=== PATIENT | female | born 1970 | race Caucasian/White ===

== ENCOUNTER 2017-10-25 04:36 | Observation (INO) | payer OTHER ==
--- NOTE | 2017-10-25 05:06 | PDOC ---
History of Present Illness <Katerine Mansfield - Last Filed: 10/25/17 09:28> - General History Source: Patient Exam Limitations: No Limitations - History of Present Illness Initial Comments: 10/25/17 05:28 47F with PMH of asthma presents to the ER with shortness of breath. She states since last night she has been having shortness of breath and started wheezing. She states she also had an oral temperature of 101 last night. The patient states she had a UTI on 10/16/2017 and was prescribed macrobid but she wasn't too compliant as she would forget to take her medications. She states the dysuria and increased urinary frequency has resolved. She denies cough or sputum production. She is an active cigarette smoker. She has not had an asthma exacerbation in many years and only uses her inhaler on infrequent occasions such as when she gets sick or exercises. She states she just saw her PMD and had a physical and everything was ok. She denies vomiting chest pain or GI symptoms. She endorses shortness of breath nausea fever and chills. <Sathya Negro - Last Filed: 10/26/17 03:50> - General Chief Complaint: Shortness of Breath Stated Complaint: ASTHMA Past History <Katerine Mansfield - Last Filed: 10/25/17 09:28> - Past Medical History Anemia: No Asthma: Yes Cancer: No Cardiac Disorders: No CVA: No COPD: No CHF: No Dementia: No Diabetes: No GI Disorders: No Disorders: No HTN: No Hypercholesterolemia: No Liver Disease: No Seizures: No Thyroid Disease: No - Surgical History Abdominal Surgery: No Appendectomy: No Cardiac Surgery: No Cholecystectomy: No Lung Surgery: No Neurologic Surgery: No Orthopedic Surgery: No - Suicide/Smoking/Psychosocial Hx Smoking Status: Yes Smoking History: Current every day smoker Have you smoked in the past 12 months: Yes Number of Cigarettes Smoked Daily: 20 'Breaking Loose' booklet given: 10/04/12 Hx Alcohol Use: No Drug/Substance Use Hx: No Substance Use Type: None Hx Substance Use Treatment: No <Sathya Negro - Last Filed: 10/26/17 03:50> - Past Medical History Allergies/Adverse Reactions: Allergies Allergy/AdvReac Type Severity Reaction Status Date / Time Penicillins Allergy Rash Verified 10/25/17 05:05 Home Medications: Ambulatory Orders Montelukast Na [Singulair -] 10 mg PO HS 10/01/12 Albuterol 0.083% Nebulizer Cherri [Ventolin 0.083%] 1 neb NEB Q4H PRN 10/25/17 Cholecalciferol (Vitamin D3) [Vitamin D3] 1,000 unit PO BID 10/25/17 Fluticasone/Salmeterol [Advair 250-50 Diskus] 1 puff IH DAILY 10/25/17 Review of Systems - Review of Systems Able to Perform ROS?: Yes Is the patient limited French proficient: No Constitutional: Yes: Chills, Fever HEENTM: No: Symptoms Reported, See HPI, Eye Pain, Blurred Vision, Tearing, Recent change in vision, Double Vision, Cataracts, Ear Pain, Ocular Prothesis, Ear Discharge, Nose Pain, Nose Congestion, Tinnitus, Nose Bleeding, Hearing Loss , Throat Pain, Throat Swelling, Mouth Pain, Dental Problems, Difficulty Swallowing, Mouth Swelling, Other Respiratory: Yes: Shortness of Breath, Wheezing Cardiac (ROS): No: Symptoms Reported, See HPI, Chest Pain, Edema, Irregular Heart Rate, Lightheadedness, Palpitations, Syncope, Chest Tightness, Other ABD/GI: Yes: Nausea : Yes: Dysuria (resolved), Frequency (resolved ) Musculoskeletal: Yes: Back Pain Integumentary: No: Symptoms Reported, See HPI, Bruising, Change in Color, Change in Hair/Nails, Dryness, Erythema, Flushing, Lesions, Lumps, Pallor, Pruritus, Rash, Sweating, Other Neurological: No: Symptoms reported, See HPI, Headache, Numbness, Paresthesia, Pre-Existing Deficit, Seizure, Tingling, Tremors, Weakness, Unsteady Gait, Ataxia, Dizziness, Other Psychiatric: No: Anxiety, Depression, Frequent Crying, Stressors, Sleep Pattern Change, Emotional Problems, Mood Swings, Change in Appetite, Other Endocrine: No: Symptoms Reported, See HPI, Excessive Sweating, Flushing, Intolerance to Cold, Intolerance to Heat, Increased Hunger, Increased Thirst, Increased Urine, Unexplained Weight Gain, Unexplained Weight Loss, Change in Weight, Other <Sathya Negro - Last Filed: 10/26/17 03:50> *Physical Exam - Vital Signs Last Vital Signs Temp Pulse Resp BP Pulse Ox 99.8 F H 110 H 20 136/86 90 L 10/25/17 04:37 10/25/17 04:37 10/25/17 04:37 10/25/17 04:37 10/25/17 04:37 <Katerine Mansfield - Last Filed: 10/25/17 09:28> - Physical Exam General Appearance: Yes: Nourished, Appropriately Dressed. No: Apparent Distress HEENT: positive: EOMI, BONI Neck: positive: Trachea midline, Supple Respiratory/Chest: positive: Wheezing, Other (prolonged expiratory phase. speaks in full sentences ) Cardiovascular: positive: Regular Rhythm, Tachycardia Gastrointestinal/Abdominal: positive: Soft. negative: Tender Musculoskeletal: negative: CVA Tenderness Extremity: positive: Normal Capillary Refill Integumentary: positive: Dry, Warm Neurologic: positive: cloth dyer II-XII NML intact, Fully Oriented, Alert, Normal Mood/ Affect, Normal Response, Motor Strength 5/5 <Sathya Negro - Last Filed: 10/26/17 03:50> ED Treatment Course - LABORATORY CBC & Chemistry Diagram: 10/25/17 05:25 10/25/17 05:25 - ADDITIONAL ORDERS Additional order review: Laboratory Results 10/25/17 10/25/17 10/25/17 05:25 05:25 05:25 Sodium 141 Potassium 4.3 Chloride 109 H Carbon Dioxide 23 Anion Gap 9 BUN 15 Creatinine 0.8 Creat Clearance w eGFR > 60 Random Glucose 111 H Calcium 8.9 Magnesium 1.8 Total Bilirubin 0.6 AST 16 ALT 29 Alkaline Phosphatase 97 Creatine Kinase 88 Troponin I < 0.02 Total Protein 7.6 Albumin 3.8 10/25/17 05:25 RBC 4.84 MCV 90.9 MCHC 33.1 RDW 13.8 MPV 8.8 Neutrophils % 93.8 H Lymphocytes % 4.4 L Monocytes % 0.2 L Eosinophils % 1.6 Basophils % 0.0 - Medications Given in the ED: ED Medications Discontinued Medications Generic Name Dose Route Start Last Admin Trade Name Brantq PRN Reason Stop Dose Admin Acetaminophen 1,000 mg 10/25/17 06:37 10/25/17 06:58 Ofirmev Injection - IVPB 10/25/17 06:38 1,000 mg ONCE ONE Administration Albuterol/Ipratropium 3 amp 10/25/17 05:22 08/19/18 05:45 Duoneb - NEB 10/25/17 05:23 3 amp ONCE ONE Administration Levofloxacin 750 mg in 150 mls @ 100 mls/hr 10/25/17 06:37 10/25/17 06:58 Levaquin 750 Mg Premixed Ivpb - IVPB 10/25/17 08:06 100 mls/hr ONCE ONE Administration Protocol Magnesium Sulfate 2 gm 10/25/17 05:25 10/25/17 05:45 Magnesium Sulfate IVPB 10/25/17 05:26 2 gm ONCE ONE Administration Prednisone 60 mg 10/25/17 05:23 10/25/17 05:45 Deltasone - PO 10/25/17 05:24 60 mg ONCE ONE Administration <Katerine Mansfield - Last Filed: 10/25/17 09:28> - LABORATORY CBC & Chemistry Diagram: 10/25/17 05:25 10/25/17 05:25 <Sathya Negro - Last Filed: 10/26/17 03:50> Medical Decision Making - Medical Decision Making 10/25/17 06:03 47F with asthma exacerbation and possible UTI vs PNA. Hypoxic to 90% Peak flow 190 Will do: CBC CMP Cardiac profile UA UCx Upreg Mg Duonebs Prednisone 60mg po magnesium 2GM CXR reassess possible admission 10/25/17 06:35 labs noted WBC count 20 Will give levaquin 750mg IV Will give IV Tylenol CXR consistent with bronchitis on my read recommended admission and she does not want to be admitted. Discussed risks of signing out AMA with an O2 saturation of 90% and WBC count of 20 including sepsis septic shock and . She will think about it Patient signed out to Dr. Levy <Sathya Negro - Last Filed: 10/26/17 03:50> *DC/Admit/Observation/Transfer - Discharge Dispostion Decision to Admit order: Yes <Katerine Mansfield - Last Filed: 10/25/17 09:28> <Sathya Negro - Last Filed: 10/26/17 03:50> Diagnosis at time of Disposition: Pneumonia - Discharge Dispostion Condition at time of disposition: Stable
[2017-10-25] MEDS ORDERED: ALBUTEROL SO4 2.5/IPRATROPIUM 0.5 INH SOL 3 ML VIAL.NEB. NEB ONE ×4 (05:21→18:04)
[2017-10-25] MEDS ORDERED: ALBUTEROL SO4 0.083% IH SOL 2.5 MG/3 ML VIAL.NEB. NEB ONE (05:21)
[2017-10-25] MEDS ORDERED: predniSONE 20 MG TABLET (UD) PO ONE (05:23)
[2017-10-25] MEDS ORDERED: MAGNESIUM SULF 50% (8.12 MEQ/2 ML-1 GM VIAL) IVPB ONE (05:25)
--- NOTE | 2017-10-25 05:33 | PDOC ---
Attending Attestation - HPI HPI: 10/25/17 06:27 Patient is a 47 year old female with a significant past medical history of hyperlipidemia and asthma who presents to the ED with complaints of difficulty breathing that began just prior to ED arrival. Patient reports experiencing difficulting breathing with associated chills, chest tightness, stating it feels as if someone is sitting on my chest. She reports being prescribed Macrobid for UTI x6 days ago but states she was not compliant with the medication , stating she currently has one or two pills left in the bottle. Denies chest pain, coughing. Denies fevers, chills. Denies nausea, vomiting. Denies contact with sick individuals, out of state traveling. Denies dysuria, hematuria. Denies diarrhea, constipation. Denies any other symptoms. Allergies: Penicillin Social history: Lives with . Current smoker. No alcohol. No illicit drugs. Surgical history: None PMD: Dr. Sveta Reyna-jessica - Physicial Exam PE: 10/25/17 06:27 GENERAL: Awake, alert, and fully oriented, in no acute distress HEAD: No signs of trauma EYES: PERRLA, EOMI, sclera anicteric, conjunctiva clear ENT: Auricles normal inspection, hearing grossly normal, nares patent, oropharynx clear without exudates. Moist mucosa NECK: Normal ROM, supple, no lymphadenopathy, JVD, or masses LUNGS: +Very tight breath sounds. +Expiratory wheeze. No crackles HEART: Regular rate and rhythm, normal S1 and S2, no murmurs, rubs or gallops ABDOMEN: Soft, nontender, normoactive bowel sounds. No guarding, no rebound. No masses EXTREMITIES: Normal range of motion, no edema. No clubbing or cyanosis. No cords, erythema, or tenderness NEUROLOGICAL: Cranial nerves II through XII grossly intact. Normal speech, normal gait SKIN: Warm, Dry, normal turgor, no rashes or lesions noted. <Danny Grijalva - Last Filed: 10/25/17 06:27> - Resident Resident Name: Flaquito Rocha - ED Attending Attestation I have performed the following: I have examined & evaluated the patient, The case was reviewed & discussed with the resident, I agree w/resident's findings & plan, Exceptions are as noted - Medical Decision Making 10/25/17 05:33 A portion of this note was written by my scribe, under my supervision. Vital Signs Temp Pulse Resp BP Pulse Ox 99.8 F H 110 H 20 136/86 90 L 10/25/17 04:37 10/25/17 04:37 10/25/17 04:37 10/25/17 04:37 10/25/17 04:37 47 year old female with history of asthma presents with asthma exacerbation. Patient reported waking up with shortness of breath and wheezing. She started to notice some chills overnight, but did not check temperature. Denies coughing. Pt is noted here with temp of 99.8 degrees. She is hypoxic to 90 percent but speaking in full sentences and non-toxic appearing. Patient's H&P is consistent with asthma exacerbation. Will need to r/o PNA. Chest xray, labs. Duonebs, Steroids, IV magnesium. Reassess. If patient symptoms do not improve, patient will need to be admitted to the hospital. 10/25/17 06:37 CBC, BMP 10/25/17 05:25 10/25/17 05:25 CMP Sodium 141 mmol/L (136-145) 10/25/17 05:25 Potassium 4.3 mmol/L (3.5-5.1) 10/25/17 05:25 Chloride 109 mmol/L (98-107) H 10/25/17 05:25 Carbon Dioxide 23 mmol/L (21-32) 10/25/17 05:25 Anion Gap 9 (8-16) 10/25/17 05:25 BUN 15 mg/dL (7-18) 10/25/17 05:25 Creatinine 0.8 mg/dL (0.55-1.02) 10/25/17 05:25 Creat Clearance w eGFR > 60 (>60) 10/25/17 05:25 Random Glucose 111 mg/dL (74-106) H 10/25/17 05:25 Calcium 8.9 mg/dL (8.5-10.1) 10/25/17 05:25 Magnesium 1.8 mg/dL (1.8-2.4) 10/25/17 05:25 Total Bilirubin 0.6 mg/dL (0.2-1.0) 10/25/17 05:25 AST 16 U/L (15-37) 10/25/17 05:25 ALT 29 U/L (12-78) 10/25/17 05:25 Alkaline Phosphatase 97 U/L (45-117) 10/25/17 05:25 Creatine Kinase 88 IU/L (26-192) 10/25/17 05:25 Troponin I < 0.02 ng/ml (0.00-0.05) 10/25/17 05:25 Total Protein 7.6 g/dl (6.4-8.2) 10/25/17 05:25 Albumin 3.8 g/dl (3.4-5.0) 10/25/17 05:25 WBC is 20. Chest xray reviewed by me, pending official radiology read. Infiltrates appreciated. Given WBC 20 and infiltrates, will initiate IV levaquin. Admit to the hospital. <Gorge Oneill - Last Filed: 10/25/17 06:41>
[2017-10-25] MEDS ORDERED: predniSONE 20 MG TABLET (UD) ONE (05:36)
[2017-10-25] MEDS ORDERED: MAGNESIUM SULF 50% (8.12 MEQ/2 ML-1 GM VIAL) ONE ×2 (05:36→05:49)
[2017-10-25 05:41] LABS: EOS % 1.6 % (0-4.5); HEMOGLOBIN 14.6 GM/dL (10.7-15.3); LYMPH % 4.4 % (8-40); MCH 30.1 pg (25.7-33.7); MCHC 33.1 g/dl (32.0-36.0); MEAN CELL VOLUME 90.9 fl (80-96); MEAN PLT VOLUME 8.8 fl (7.5-11.1); MONO % 0.2 % (3.8-10.2); NEUT % 93.8 % (42.8-82.8); PLATELET COUNT 263 K/MM3 (134-434); RBC 4.84 M/mm3 (3.60-5.2); RDW 13.8 % (11.6-15.6)
[2017-10-25 06:16] LABS: ALBUMIN 3.8 g/dl (3.4-5.0); ALK PHOS 97 U/L (45-117); ANION GAP 9 (8-16); BILIRUBIN,TOTAL 0.6 mg/dL (0.2-1.0); BLOOD UREA NITROGEN 15 mg/dL (7-18); CALCIUM 8.9 mg/dL (8.5-10.1); CHLORIDE 109 mmol/L (98-107); CO2 23 mmol/L (21-32); CREATININE 0.8 mg/dL (0.55-1.02); GLUCOSE,RANDOM 111 mg/dL (74-106); POTASSIUM 4.3 mmol/L (3.5-5.1); SGOT/AST 16 U/L (15-37); SGPT/ALT 29 U/L (12-78); SODIUM 141 mmol/L (136-145); TOT PROT 7.6 g/dl (6.4-8.2)
[2017-10-25] MEDS ORDERED: ACETAMINOPHEN 1000 MG/100 ML VIAL (NON FORMULARY) IVPB ONE (06:37)
[2017-10-25] MEDS ORDERED: ACETAMINOPHEN INJECTION 100 ML IVPB ONE (06:51)
--- NOTE | 2017-10-25 07:24 | PDOC ---
*Physical Exam - Vital Signs Last Vital Signs Temp Pulse Resp BP Pulse Ox 99.8 F H 110 H 20 136/86 90 L 10/25/17 04:37 10/25/17 04:37 10/25/17 04:37 10/25/17 04:37 10/25/17 04:37 ED Treatment Course - LABORATORY CBC & Chemistry Diagram: 10/25/17 05:25 10/25/17 05:25 - ADDITIONAL ORDERS Additional order review: Laboratory Results 10/25/17 10/25/17 10/25/17 05:25 05:25 05:25 Sodium 141 Potassium 4.3 Chloride 109 H Carbon Dioxide 23 Anion Gap 9 BUN 15 Creatinine 0.8 Creat Clearance w eGFR > 60 Random Glucose 111 H Calcium 8.9 Magnesium 1.8 Total Bilirubin 0.6 AST 16 ALT 29 Alkaline Phosphatase 97 Creatine Kinase 88 Troponin I < 0.02 Total Protein 7.6 Albumin 3.8 10/25/17 05:25 RBC 4.84 MCV 90.9 MCHC 33.1 RDW 13.8 MPV 8.8 Neutrophils % 93.8 H Lymphocytes % 4.4 L Monocytes % 0.2 L Eosinophils % 1.6 Basophils % 0.0 - Medications Given in the ED: ED Medications Discontinued Medications Generic Name Dose Route Start Last Admin Trade Name Freq PRN Reason Stop Dose Admin Acetaminophen 1,000 mg 10/25/17 06:37 10/25/17 06:58 Ofirmev Injection - IVPB 10/25/17 06:38 1,000 mg ONCE ONE Administration Albuterol/Ipratropium 3 amp 10/25/17 05:22 10/25/17 05:45 Duoneb - NEB 10/25/17 05:23 3 amp ONCE ONE Administration Magnesium Sulfate 2 gm 10/25/17 05:25 10/25/17 05:45 Magnesium Sulfate IVPB 10/25/17 05:26 2 gm ONCE ONE Administration Prednisone 60 mg 10/25/17 05:23 10/25/17 05:45 Deltasone - PO 10/25/17 05:24 60 mg ONCE ONE Administration Medical Decision Making - Medical Decision Making 10/25/17 07:[address] Pt[address] signed out [address] Dr[address] Negro. Pt assessed stable at bedside. End expiratory wheeze in upper lobes appreciated. 10/25/17 09:07 Discussed with patient reasoning for admission and risks if leaving AMA. She agrees to admission. [facility] contacted. 10/25/17 09:19 Medicine will accept patient. *DC/Admit/Observation/Transfer Diagnosis at time of Disposition: Pneumonia - Discharge Dispostion Condition at time of disposition: Stable Decision to Admit order: Yes - Referrals Referrals: Sveta Sanchez MD [Primary Care Provider] - - Patient Instructions - Post Discharge Activity
[2017-10-25] MEDS ORDERED: ALBUTEROL SO4 0.083% IH SOL 2.5 MG/3 ML VIAL.NEB. NEB PRN (09:30)
--- NOTE | 2017-10-25 09:34 | HP ---
CHIEF COMPLAINT: SOB PCP: Dr. Sveta Jacobson HISTORY OF PRESENT ILLNESS: The patient is a 47 yo F w/ PMH of asthma who presents to the ER c/o SOB for the past 1 day. The patient states that she began to experience SOB and wheezing last night. These symptoms were accompanied by chills and a measured fever of 101 at home. The patient states that she has been increasing the use of her inhaler recently due to the changing weather. Patient typically has one exacerbation yearly and has never been intubated. The patient was recently treated for UTI, taking Macrobid since 10/16, but endorses nonadherence to the medication. Patient denies urinary symptoms at this time. In addition to the above symptoms, the patient also endorses a new cough which she developed while in the ED. The patient denies recent travel, sick contacts, abdominal pain, diarrhea or chest pain. ER course was notable for: (1) levofloxacin, magnesium, nebs, (2) peak flow 150 -> 300 after nebs (3) prednisone, tylenol Recent Travel: none PAST MEDICAL HISTORY: as above PAST SURGICAL HISTORY: none Social History: Smoking: current everyday smoker Alcohol: denies Drugs: denies Family History: non-contributory Allergies Penicillins Allergy (Verified 10/25/17 05:05) Rash HOME MEDICATIONS: Home Medications Medication Instructions Recorded Montelukast Na [Singulair -] 10 mg PO HS 10/01/12 REVIEW OF SYSTEMS CONSTITUTIONAL: Absent: diaphoresis, generalized weakness, malaise, loss of appetite, weight change HEENT: Absent: rhinorrhea, nasal congestion, throat pain, throat swelling, difficulty swallowing, mouth swelling, ear pain, eye pain, visual changes CARDIOVASCULAR: Absent: chest pain, syncope, palpitations, irregular heart rate, lightheadedness , peripheral edema RESPIRATORY: Absent: orthopnea, wheezing, stridor, hemoptysis GASTROINTESTINAL: Absent: abdominal pain, abdominal distension, nausea, vomiting, diarrhea, constipation, melena, hematochezia GENITOURINARY: Absent: dysuria, frequency, urgency, hesitancy, hematuria, flank pain, genital pain MUSCULOSKELETAL: Absent: myalgia, arthralgia, joint swelling, back pain, neck pain SKIN: Absent: rash, itching, pallor HEMATOLOGIC/IMMUNOLOGIC: Absent: easy bleeding, easy bruising, lymphadenopathy, frequent infections ENDOCRINE: Absent: unexplained weight gain, unexplained weight loss, heat intolerance, cold intolerance NEUROLOGIC: Absent: headache, focal weakness or paresthesias, dizziness, unsteady gait, seizure, mental status changes, bladder or bowel incontinence PSYCHIATRIC: Absent: anxiety, depression, suicidal or homicidal ideation, hallucinations. PHYSICAL EXAMINATION Vital Signs Temperature 99.5 F 10/25/17 10:26 Pulse Rate 95 H 10/25/17 10:26 Respiratory Rate 18 10/25/17 10:26 Blood Pressure 105/60 10/25/17 10:26 O2 Sat by Pulse Oximetry (%) 95 10/25/17 10:26 GENERAL: Awake, alert, and fully oriented, in no acute distress. HEAD: Normal with no signs of trauma. EYES: Pupils equal, round and reactive to light, extraocular movements intact, sclera anicteric, conjunctiva clear. No lid lag. NECK: Normal range of motion, supple without lymphadenopathy, JVD, or masses. LUNGS: Breath sounds equal, inspiratory crackles heard b/l in the mid and lower lung carver w/ wheezes heard in RLL. No accessory muscle use. HEART: Regular rate and rhythm, normal S1 and S2 without murmur, rub or gallop. ABDOMEN: Soft, nontender, not distended, normoactive bowel sounds, no guarding, no rebound, no masses. No hepatomegaly or splenomegaly. LOWER EXTREMITIES: 2+ pulses, warm, well-perfused. No calf tenderness. No peripheral edema. NEUROLOGICAL: Cranial nerves II-X intact. Normal speech. SKIN: Warm, dry, normal turgor, no rashes or lesions noted, normal capillary refill. Home Medications Medication Instructions Recorded Montelukast Na [Singulair -] 10 mg PO HS 10/01/12 Active Medications Albuterol Sulfate (Ventolin 0.083% Nebulizer Soln -) 1 amp NEB Q6H PRN PRN Reason: SHORT OF BREATH/WHEEZING Budesonide/Formoterol Fumarate (Symbicort 160/4.5mcg -) 2 puff IH BID JANINA Last Admin: 10/25/17 10:29 Dose: 2 inh Heparin Sodium (Porcine) (Heparin -) 5,000 unit SQ Q8H-IV JANINA Last Admin: 10/25/17 10:29 Dose: Not Given Azithromycin 500 mg/ Dextrose 250 mls @ 250 mls/hr IVPB DAILY [facility] Last Admin: 10/25/17 10:03 Dose: 250 mls/hr Methylprednisolone Sodium Succinate (Solu-Medrol -) 40 mg IVPUSH Q8H-IV JANINA Last Admin: 10/25/17 10:03 Dose: 40 mg ASSESSMENT/PLAN: The patient is a 47 yo f w/ PMH Asthma who comes into the ED c/o SOB, fever and chills. #Cough and fever likely 2/2 pneumonia vs bronchitis vs simple asthma exacerbation. -CXR shows -solu-medrol 40mg IV q8h -Azithromycin 500mg daily -monitor peak flow -symbicort 160 2 puffs BID -Nebs PRN -c/w home singulair #FEN -no fluids indicated -lytes wnl, monitor -sodium controlled diet #prophy -heparin SQ 5k units TID #Dispo -admit obs -medications verified with patient's pharmacy Visit type - Emergency Visit Emergency Visit: Yes ED Registration Date: 10/25/17 Care time: The patient presented to the Emergency Department on the above date and was hospitalized for further evaluation of their emergent condition. - New Patient This patient is new to me today: Yes Date on this admission: 10/25/17 - Critical Care Critical Care patient: No Hospitalist Screening - Colonoscopy Questionnaire Colonoscopy Questionnaire: Colonoscopy Questionnaire - Patient: 50 - 75 years old and never had a screening colonoscopy: Unknown History of colon or rectal polyps, or CA: Unknown History of IBD, Crohn's disease or UC: Unknown History of abdominal radiation therapy as a child: Unknown - Relative: 1 with colon or rectal CA, or polyps at age 60 or younger: Unknown Colon or rectal CA diagnosed at age 45 or younger: Unknown Multiple relatives with colon or rectal CA: Unknown - Outcome: Screening Result: Negative Screen
[2017-10-25] MEDS ORDERED: AZITHROMYCIN IVPB 250 ML IVPB ONE (09:58)
[2017-10-25] MEDS ORDERED: methylPREDNISolone NA SUCC 40 MG/1 ML VIAL ONE ×2 (09:58→18:16)
[2017-10-25] MEDS ORDERED: HEPARIN NA (PORCINE) 5,000 UNITS/ML 1ML VIAL ONE (09:58)
[2017-10-25] MEDS ORDERED: BUDESONIDE/FORMETEROL FUMARATE 160/4.5 mcg INHALER IH SCH (10:00)
[2017-10-25] MEDS: methylPREDNISolone NA SUCC 40 MG/1 ML VIAL IVPUSH SCH ×2 (10:03→18:19)
[2017-10-25] MEDS: AZITHROMYCIN IVPB 500 MG in DEXTROSE 5%-WATER - 250 ML IVPB SCH (10:03)
[2017-10-25] MEDS: HEPARIN NA (PORCINE) 5,000 UNITS/ML 1ML VIAL SQ SCH ×2 (10:29→18:15)
--- NOTE | 2017-10-25 19:15 | PN ---
Teaching Attending Note Name of Resident: Ko Valentine ATTENDING PHYSICIAN STATEMENT I saw and evaluated the patient. I reviewed the resident's note and discussed the case with the resident. I agree with the resident's findings and plan as documented. SUBJECTIVE: Patient is feeling shortness of breath. OBJECTIVE: Vital Signs Temperature 99.5 F 10/25/17 10:26 Pulse Rate 95 H 10/25/17 10:26 Respiratory Rate 18 10/25/17 10:26 Blood Pressure 105/60 10/25/17 10:26 O2 Sat by Pulse Oximetry (%) 95 10/25/17 10:26 CBCD WBC 20.0 K/mm3 (4.0-10.0) H 10/25/17 05:25 RBC 4.84 M/mm3 (3.60-5.2) 10/25/17 05:25 Hgb 14.6 GM/dL (10.7-15.3) 10/25/17 05:25 Hct 44.0 % (32.4-45.2) 10/25/17 05:25 MCV 90.9 fl (80-96) 10/25/17 05:25 MCHC 33.1 g/dl (32.0-36.0) 10/25/17 05:25 RDW 13.8 % (11.6-15.6) 10/25/17 05:25 Plt Count 263 K/MM3 (134-434) 10/25/17 05:25 MPV 8.8 fl (7.5-11.1) 10/25/17 05:25 CMP Sodium 141 mmol/L (136-145) 10/25/17 05:25 Potassium 4.3 mmol/L (3.5-5.1) 10/25/17 05:25 Chloride 109 mmol/L (98-107) H 10/25/17 05:25 Carbon Dioxide 23 mmol/L (21-32) 10/25/17 05:25 Anion Gap 9 (8-16) 10/25/17 05:25 BUN 15 mg/dL (7-18) 10/25/17 05:25 Creatinine 0.8 mg/dL (0.55-1.02) 10/25/17 05:25 Creat Clearance w eGFR > 60 (>60) 10/25/17 05:25 Random Glucose 111 mg/dL (74-106) H 10/25/17 05:25 Calcium 8.9 mg/dL (8.5-10.1) 10/25/17 05:25 Total Bilirubin 0.6 mg/dL (0.2-1.0) 10/25/17 05:25 AST 16 U/L (15-37) 10/25/17 05:25 ALT 29 U/L (12-78) 10/25/17 05:25 Alkaline Phosphatase 97 U/L (45-117) 10/25/17 05:25 Total Protein 7.6 g/dl (6.4-8.2) 10/25/17 05:25 Albumin 3.8 g/dl (3.4-5.0) 10/25/17 05:25 CARDIAC ENZYMES Creatine Kinase 88 IU/L (26-192) 10/25/17 05:25 Troponin I < 0.02 ng/ml (0.00-0.05) 10/25/17 05:25 Current Medications Generic Name Dose Route Start Last Admin Trade Name Jorge PRN Reason Stop Dose Admin Albuterol Sulfate 1 amp 10/25/17 09:30 10/25/17 18:06 Ventolin 0.083% Nebulizer Soln - NEB 1 amp Q6H PRN Administration SHORT OF BREATH/WHEEZING Budesonide/Formoterol Fumarate 2 puff 10/25/17 10:00 10/25/17 10:29 Symbicort 160/4.5mcg - IH 2 inh BID JANINA Administration Heparin Sodium (Porcine) 5,000 unit 10/25/17 10:00 10/25/17 18:15 Heparin - SQ Not Given Q8H-IV JANINA Azithromycin 500 mg/ Dextrose 250 mls @ 250 mls/hr 10/25/17 10:00 10/25/17 10 :03 IVPB 250 mls/hr DAILY JANINA Administration Methylprednisolone Sodium Succinate 40 mg 10/25/17 10:00 10/25/17 18:19 Solu-Medrol - IVPUSH 40 mg Q8H-IV JANINA Administration Home Medications Medication Instructions Recorded Montelukast Na [Singulair -] 10 mg PO HS 10/01/12 Albuterol 0.083% Nebulizer Cherri 1 neb NEB Q4H PRN 10/25/17 [Ventolin 0.083%] Cholecalciferol (Vitamin D3) 1,000 unit PO BID 10/25/17 [Vitamin D3] Fluticasone/Salmeterol [Advair 1 puff IH DAILY 10/25/17 250-50 Diskus] PE: Wheezing BL with peak flow 300's rest of PE per resident's note ASSESSMENT AND PLAN: The patient is a 47yo female with PMHx Asthma who comes to ED c/o SOB. #Acute Asthma exacerbation : will place solu-medrol 40mg IV q8h, Azithromycin 500mg daily, monitor peak flow, symbicort 160 2 puffs BID, continue singulair DVT px: heparin
--- NOTE | 2017-10-25 19:17 | EKG ---
Test Reason : Blood Pressure : / mmHG Vent. Rate : 110 BPM Atrial Rate : 110 BPM P-R Int : 144 ms QRS Dur : 094 ms QT Int : 336 ms P-R-T Axes : 058 000 033 degrees QTc Int : 454 ms SINUS TACHYCARDIA POSSIBLE LEFT ATRIAL ENLARGEMENT INCOMPLETE RIGHT BUNDLE BRANCH BLOCK BORDERLINE ECG Confirmed by MD CATHY, LINA ([id number]) on 10/25/2017 7:16:57 PM Referred By: Confirmed By:LINA MORGAN MD
[2017-10-25 20:14] VITALS: BMI 33.5
[2017-10-25] MEDS ORDERED: MONTELUKAST NA 10 MG TABLET PO SCH (22:00)
[2017-10-25] MEDS: BUDESONIDE/FORMETEROL FUMARATE 160/4.5 mcg INHALER IH SCH ×2 (22:34→22:42)
[2017-10-26] MEDS: HEPARIN NA (PORCINE) 5,000 UNITS/ML 1ML VIAL SQ SCH ×2 (02:33→10:09)
[2017-10-26] MEDS: methylPREDNISolone NA SUCC 40 MG/1 ML VIAL IVPUSH SCH ×2 (02:34→10:09)
[2017-10-26 07:22] LABS: BASO % 0.8 % (0-2.0); EOS % 0.3 % (0-4.5); HEMATOCRIT 37.3 % (32.4-45.2); HEMOGLOBIN 12.4 GM/dL (10.7-15.3); LYMPH % 6.7 % (8-40); MCH 30.4 pg (25.7-33.7); MCHC 33.2 g/dl (32.0-36.0); MEAN CELL VOLUME 91.7 fl (80-96); MEAN PLT VOLUME 9.3 fl (7.5-11.1); MONO % 2.2 % (3.8-10.2); PLATELET COUNT 271 K/MM3 (134-434); RBC 4.07 M/mm3 (3.60-5.2); RDW 13.7 % (11.6-15.6); WHITE BLOOD COUNT 24.2 K/mm3 (4.0-10.0)
[2017-10-26 07:47] LABS: ANION GAP 11 (8-16); BLOOD UREA NITROGEN 21 mg/dL (7-18); CALCIUM 9.1 mg/dL (8.5-10.1); CHLORIDE 111 mmol/L (98-107); CO2 21 mmol/L (21-32); GLUCOSE,RANDOM 124 mg/dL (74-106); MAGNESIUM 2.2 mg/dL (1.8-2.4); POTASSIUM 4.3 mmol/L (3.5-5.1); SODIUM 143 mmol/L (136-145)
[2017-10-26 07:49] LABS: CREATININE 0.8 mg/dL (0.55-1.02); PHOSPHOROUS 2.7 mg/dL (2.5-4.9)
[2017-10-26 09:23] VITALS: BP 100/63; PULSE 69; TEMP 98.4
[2017-10-26] MEDS: AZITHROMYCIN IVPB 500 MG in DEXTROSE 5%-WATER - 250 ML IVPB SCH (10:09)
[2017-10-26] MEDS: BUDESONIDE/FORMETEROL FUMARATE 160/4.5 mcg INHALER IH SCH (10:09)
--- NOTE | 2017-10-26 13:01 | DS ---
Physical Exam: SUBJECTIVE: Patient seen and examined OBJECTIVE: Vital Signs Period Temp Pulse Resp BP Sys/[place] Pulse Ox Last 24 Hr 98.2 F-98.4 F 69-92 20-20 100-104/51-63 93-93 PHYSICAL EXAM GENERAL: The patient is awake, alert, and fully oriented, in no acute distress. HEAD: Normal with no signs of trauma. EYES: PERRL, extraocular movements intact, sclera anicteric, conjunctiva clear. ENT: Ears normal, nares patent, oropharynx clear without exudates, moist mucous membranes. NECK: Trachea midline, full range of motion, supple. LUNGS: Breath sounds equal, clear to auscultation bilaterally, no wheezes, no crackles, no accessory muscle use. HEART: Regular rate and rhythm, S1, S2 without murmur, rub or gallop. ABDOMEN: Soft, nontender, nondistended, normoactive bowel sounds, no guarding, no rebound, no hepatosplenomegaly, no masses. EXTREMITIES: 2+ pulses, warm, well-perfused, no edema. NEUROLOGICAL: Cranial nerves II through XII grossly intact. Normal speech, gait not observed. PSYCH: Normal mood, normal affect. SKIN: Warm, dry, normal turgor, no rashes or lesions noted. LABS Laboratory Results - last 24 hr 10/26/17 10/26/17 06:00 06:00 WBC 24.2 H RBC 4.07 Hgb 12.4 Hct 37.3 D MCV 91.7 MCH 30.4 MCHC 33.2 RDW 13.7 Plt Count 271 MPV 9.3 Absolute Neuts (auto) 21.8 H Neutrophils % 90.0 H Lymphocytes % 6.7 L D Monocytes % 2.2 L D Eosinophils % 0.3 D Basophils % 0.8 D Nucleated RBC % 0 Sodium 143 Potassium 4.3 Chloride 111 H Carbon Dioxide 21 Anion Gap 11 BUN 21 H Creatinine 0.8 Creat Clearance w eGFR > 60 Random Glucose 124 H Calcium 9.1 Phosphorus 2.7 Magnesium 2.2 HOSPITAL COURSE: Date of Admission:10/25/17 Date of Discharge: 10/26/17 <Celina Prescott - Last Filed: 10/26/17 12:58> Physical Exam: SUBJECTIVE: Patient seen and examined Patient is comfortable with no acute distress, No wheeze, no shortness of breath. OBJECTIVE: Vital Signs Temperature 98.4 F 10/26/17 09:23 Pulse Rate 69 10/26/17 09:23 Respiratory Rate 20 10/26/17 09:23 Blood Pressure 100/63 10/26/17 09:23 O2 Sat by Pulse Oximetry (%) 93 L 10/26/17 09:00 PHYSICAL EXAM GENERAL: The patient is awake, alert, and fully oriented, in no acute distress. HEAD: Normal with no signs of trauma. EYES: PERRL, extraocular movements intact, sclera anicteric, conjunctiva clear. ENT: Ears normal, oropharynx clear without exudates, moist mucous membranes. NECK: Trachea midline, full range of motion, supple. LUNGS: Breath sounds equal, clear to auscultation bilaterally, no wheezes, no crackles, no accessory muscle use. HEART: Regular rate and rhythm, S1, S2 without murmur, rub or gallop. ABDOMEN: Soft, nontender, nondistended, normoactive bowel sounds, no guarding, no rebound, no hepatosplenomegaly, no masses. EXTREMITIES: 2+ pulses, warm, well-perfused, no edema. NEUROLOGICAL: Cranial nerves II through XII grossly intact. Normal speech, gait is stable PSYCH: Normal mood, normal affect. SKIN: Warm, dry, normal turgor, no rashes or lesions noted. LABS CBCD WBC 24.2 K/mm3 (4.0-10.0) H 10/26/17 06:00 RBC 4.07 M/mm3 (3.60-5.2) 10/26/17 06:00 Hgb 12.4 GM/dL (10.7-15.3) 10/26/17 06:00 Hct 37.3 % (32.4-45.2) D 10/26/17 06:00 MCV 91.7 fl (80-96) 10/26/17 06:00 MCHC 33.2 g/dl (32.0-36.0) 10/26/17 06:00 RDW 13.7 % (11.6-15.6) 10/26/17 06:00 Plt Count 271 K/MM3 (134-434) 10/26/17 06:00 MPV 9.3 fl (7.5-11.1) 10/26/17 06:00 CMP Sodium 143 mmol/L (136-145) 10/26/17 06:00 Potassium 4.3 mmol/L (3.5-5.1) 10/26/17 06:00 Chloride 111 mmol/L (98-107) H 10/26/17 06:00 Carbon Dioxide 21 mmol/L (21-32) 10/26/17 06:00 Anion Gap 11 (8-16) 10/26/17 06:00 BUN 21 mg/dL (7-18) H 10/26/17 06:00 Creatinine 0.8 mg/dL (0.55-1.02) 10/26/17 06:00 Creat Clearance w eGFR > 60 (>60) 10/26/17 06:00 Random Glucose 124 mg/dL (74-106) H 10/26/17 06:00 Calcium 9.1 mg/dL (8.5-10.1) 10/26/17 06:00 Total Bilirubin 0.6 mg/dL (0.2-1.0) 10/25/17 05:25 AST 16 U/L (15-37) 10/25/17 05:25 ALT 29 U/L (12-78) 10/25/17 05:25 Alkaline Phosphatase 97 U/L (45-117) 10/25/17 05:25 Total Protein 7.6 g/dl (6.4-8.2) 10/25/17 05:25 Albumin 3.8 g/dl (3.4-5.0) 10/25/17 05:25 CARDIAC ENZYMES Creatine Kinase 88 IU/L (26-192) 10/25/17 05:25 Troponin I < 0.02 ng/ml (0.00-0.05) 10/25/17 05:25 Home Medications Medication Instructions Recorded Montelukast Na [Singulair -] 10 mg PO HS 10/01/12 Albuterol 0.083% Nebulizer Cherri 1 neb NEB Q4H PRN 10/25/17 [Ventolin 0.083% Nebulizer Soln -] Cholecalciferol (Vitamin D3) 1,000 unit PO BID 10/25/17 [Vitamin D3] Fluticasone/Salmeterol [Advair 1 puff IH DAILY 10/25/17 250-50 Diskus] Albuterol 0.083% Nebulizer Cherri 1 neb NEB Q4H PRN #25 vial 10/26/17 [Ventolin 0.083% Nebulizer Soln -] Azithromycin 250 mg PO DAILY #3 tablet 10/26/17 predniSONE [Deltasone -] See Taper PO DAILY #6 tab 10/26/17 HOSPITAL COURSE: Date of Admission:10/25/17 Date of Discharge: 10/26/17 The patient is a 47yo female with PMHx Asthma who comes to ED c/o SOB. #Acute Asthma exacerbation : will switch to Prednisone oral with taper dose, Azithromycin 250mg daily for 3 more days.peak flow in 340, continue singulair continue with nebs as needed. continue Advair. discharge time 35 min. Minutes to complete discharge: 35 <Renetta Tamayo - Last Filed: 10/26/17 14:47> Discharge Summary Reason For Visit: PNEUMONIA - Home Medications Comprehensive Discharge Medication List: Ambulatory Orders Montelukast Na [Singulair -] 10 mg PO HS 10/01/12 Albuterol 0.083% Nebulizer Cherri [Ventolin 0.083% Nebulizer Soln -] 1 neb NEB Q4H PRN 10/25/17 Cholecalciferol (Vitamin D3) [Vitamin D3] 1,000 unit PO BID 10/25/17 Fluticasone/Salmeterol [Advair 250-50 Diskus] 1 puff IH DAILY 10/25/17 Albuterol 0.083% Nebulizer Cherri [Ventolin 0.083% Nebulizer Soln -] 1 neb NEB Q4H PRN #25 vial 10/26/17 Azithromycin 250 mg PO DAILY #3 tablet 10/26/17 predniSONE [Deltasone -] See Taper PO DAILY #6 tab 10/26/17 <Celina Prescott - Last Filed: 10/26/17 12:58> - Home Medications Comprehensive Discharge Medication List: Ambulatory Orders Montelukast Na [Singulair -] 10 mg PO HS 10/01/12 Albuterol 0.083% Nebulizer Cherri [Ventolin 0.083% Nebulizer Soln -] 1 neb NEB Q4H PRN 10/25/17 Cholecalciferol (Vitamin D3) [Vitamin D3] 1,000 unit PO BID 10/25/17 Fluticasone/Salmeterol [Advair 250-50 Diskus] 1 puff IH DAILY 10/25/17 Albuterol 0.083% Nebulizer Cherri [Ventolin 0.083% Nebulizer Soln -] 1 neb NEB Q4H PRN #25 vial 10/26/17 Azithromycin 250 mg PO DAILY #3 tablet 10/26/17 predniSONE [Deltasone -] See Taper PO DAILY #6 tab 10/26/17 <Renetta Tamayo - Last Filed: 10/26/17 14:47> Condition: Improved - Instructions Diet, Activity, Other Instructions: You were admitted to the hospital for an acute asthma exacerbation. You were treated with inhalers and steroids to help with your breathing. Your symptoms subsequently improved. You are being discharged home. MEDICAL RECOMMENDATIONS Please start taking Azithromycin 250 mg daily fo the next 3 days. Please take a prednisone taper as instructed below: On 10/27: take 30mg prednisone On 10/28: take 20 mg prednisone On 10/29: take 10 mg prednisone On 10/30: STOP taking prednisone We have provided you with a 30 days supply of albuterol for your nebulizer. Please continue taking your home medications as directed. CONSULT RECOMMENDATIONS Please follow up with your primary care physician, Dr. Axel Trinidad, within 1 week. If you experience persistent fever/chills, nausea/vomiting or worsening chest pain, shortness of breath, please proceed to your nearest emergency room immediately. Referrals: Sveta Sanchez MD [Primary Care Provider] - Disposition: HOME This patient is new to me today: No Emergency Visit: Yes ED Registration Date: 10/25/17 Care time: The patient presented to the Emergency Department on the above date and was hospitalized for further evaluation of their emergent condition. Critical Care patient: No - Discharge Referral Referred to [facility] Med [facility] No <Renetta Tamayo - Last Filed: 10/26/17 14:47>
[2017-10-26 13:33] LABS: ANISOCYTOSIS 0; MACROCYTOSIS 0; PLATELET ESTIMATE NORMAL
== END 2017-10-26 13:27 | disposition home or self-care (01) ==
LOC: JER 04:36 → JERBED 09:29 → INTOOBSV 09:29 → UNDOADMOB 09:29 → JERBED 09:30 → J7W 18:40 → JERBED 18:40 → J7W 18:40
PROVIDERS: ADMIT Internal Medicine; ATTEND Internal Medicine
PROC: 3E03329 Introduction of Other Anti-infective into Peripheral Vein, Percutaneous Approach (ICD-10-PCS; principal; 2017-10-25)
PROC: 3E0333Z Introduction of Anti-inflammatory into Peripheral Vein, Percutaneous Approach (ICD-10-PCS; 2017-10-25)
PROC: 3E033NZ Introduction of Analgesics, Hypnotics, Sedatives into Peripheral Vein, Percutaneous Approach (ICD-10-PCS; 2017-10-25)
PROC: 3E033GC Introduction of Other Therapeutic Substance into Peripheral Vein, Percutaneous Approach (ICD-10-PCS; 2017-10-25)
PROC: 3E0F7GC Introduction of Other Therapeutic Substance into Respiratory Tract, Via Natural or Artificial Opening (ICD-10-PCS; 2017-10-25)
DX: J18.9 Pneumonia, unspecified organism (principal); F17.210 Nicotine dependence, cigarettes, uncomplicated; J45.901 Unspecified asthma with (acute) exacerbation; Z88.0 Allergy status to penicillin
CPT/HCPCS: 36415; 71045-TC-FY; 80048; 80053; 82550; 83735; 84100; 84484; 84703; 85025; 87086; 93005; 93010; 94150; 94640; 96365; 96375; 99285-25; G0378; J0131; J7620